=== PATIENT | female | born 1975 | race Caucasian/White ===

== ENCOUNTER 2019-06-04 12:45 | Inpatient (IN) | payer BC ==
[2019-09-10] MEDS ORDERED: Buffered Lidocaine 1% SYRIN 1 ml INTRADERM ONE ×2 (06:00→10:08)
[2019-09-10] MEDS ORDERED: Lactated Ringers 1000 ml BAG 1,000 ML IV SCH (06:00)
[2019-09-10] MEDS ORDERED: fentaNYL 100 mcg/2 ml 50 MCG/ML VIAL IV PRN (09:34)
[2019-09-10] MEDS ORDERED: HYDROmorphone 1 MG/1 ML SYRINGE IV PRN (09:34)
[2019-09-10] MEDS ORDERED: diPHENhydraMINE IV 50 MG/ML 1 ml VIAL (BENADRYL) IV PRN (09:34)
[2019-09-10] MEDS ORDERED: Ondansetron 4 mg VIAL 2 MG/ML 2 ml VIAL IV PRN (09:34)
[2019-09-10] MEDS ORDERED: Prochlorperazine 5 mg/ml 2 ml VIAL (10 mg) IV PRN (09:34)
[2019-09-10] MEDS ORDERED: Naloxone 0.4 mg VIAL 0.4 mg/ml 1 ml VIAL IV PRN (09:34)
[2019-09-10] MEDS ORDERED: Lidocaine 2% PF 5 ML VIAL ONE (09:49)
[2019-09-10] MEDS ORDERED: fentaNYL 250 mcg/5 ml 50 MCG/ML 5 ml VIAL (250 MCG) ONE (09:49)
[2019-09-10] MEDS ORDERED: Rocuronium 50 mg VIAL 10 mg/ml 5 ml VIAL (50 mg) ONE (09:50)
[2019-09-10] MEDS ORDERED: Midazolam 2 mg/2 ml VIAL 1 mg/ml 2 ml VIAL (2 mg) ONE (09:51)
[2019-09-10] MEDS ORDERED: Heparin 5000 UNITS/ML VIAL(*) 1 ml vial ONE (10:07)
[2019-09-10] MEDS ORDERED: ceFAZolin 1 GM ADVAN(*) 1 GM ADDV.VIAL IVPB ONE (10:07)
[2019-09-10] MEDS ORDERED: ceFAZolin 2 GM PREMIX in ORs 2 GM/50 ML BAG ONE (10:07)
[2019-09-10] MEDS ORDERED: Bupivacaine 0.25% EPI 200,000 30 ML SDV ONE (10:42)
[2019-09-10] MEDS ORDERED: Acetaminophen IV 1 GM/100ML 100 ML ONE (10:58)
[2019-09-10] MEDS ORDERED: Phenylephrine 40 mcg/mL 10mL (400mcg) SYRINGE ONE ×2 (11:32→12:25)
[2019-09-10] MEDS ORDERED: HYDROmorphone 0.5 MG/0.5 ML SYRINGE IV SLOW PU PRN (12:51)
[2019-09-10] MEDS ORDERED: Ondansetron 4 mg VIAL 2 MG/ML 2 ml VIAL ONE (13:24)
[2019-09-10] MEDS: Lactated Ringers 1000 ml BAG 1,000 ML IV SCH ×2 (14:22→21:44)
[2019-09-10] MEDS ORDERED: Prochlorperazine 5 mg/ml 2 ml VIAL (10 mg) ONE (18:09)
[2019-09-10] MEDS: Prochlorperazine 5 mg/ml 2 ml VIAL (10 mg) IV PRN (18:12)
[2019-09-10] MEDS: Ondansetron 4 mg VIAL 2 MG/ML 2 ml VIAL IV PRN (23:49)
[2019-09-11] MEDS: Lactated Ringers 1000 ml BAG 1,000 ML IV SCH ×2 (04:42→11:18)
[2019-09-11] MEDS: Prochlorperazine 5 mg/ml 2 ml VIAL (10 mg) IV PRN ×2 (05:53→17:56)
[2019-09-11] MEDS: Heparin 5000 UNITS/ML VIAL(*) 1 ml vial SUBCUT SCH ×3 (08:05→22:31)
[2019-09-11] MEDS: Ondansetron 4 mg VIAL 2 MG/ML 2 ml VIAL IV PRN (11:12)
[2019-09-11] MEDS: D5W 1/2 NS KCl 20 meq 1000 ml 1,000 ML IV SCH (18:27)
[2019-09-11] MEDS ORDERED: OXcarbazepine 300 mg TAB (*) PO SCH (22:30)
[2019-09-11] MEDS ORDERED: CMCS: Venlafaxine 25 mg TAB (NF) PO SCH (22:30)
[2019-09-12] MEDS ORDERED: CMCS: Venlafaxine 25 mg TAB (NF) PO SCH
[2019-09-12] MEDS: Ondansetron 4 mg VIAL 2 MG/ML 2 ml VIAL IV PRN ×3 (00:10→12:48)
[2019-09-12] MEDS: D5W 1/2 NS KCl 20 meq 1000 ml 1,000 ML IV SCH ×2 (00:23→07:14)
[2019-09-12] MEDS: CMCS: Venlafaxine 25 mg TAB (NF) PO SCH ×2 (00:24→08:48)
[2019-09-12] MEDS: Heparin 5000 UNITS/ML VIAL(*) 1 ml vial SUBCUT SCH (06:18)
[2019-09-12] MEDS ORDERED: OXcarbazepine 300 mg TAB (*) PO SCH (09:00)
[2019-09-12 11:05] VITALS: BP 139/86
== END 2019-09-12 13:15 | disposition home or self-care (01) | DRG 403 ==
LOC: AA 09-10 09:44 → SSU 09-10 14:09
PROVIDERS: ADMIT Surgery; ATTEND Surgery